=== PATIENT | male | born 1985 | race Two or more races ===

== ENCOUNTER 2020-09-11 12:08 | Outpatient (REF) | payer OTHER, SELFPAY | END 2020-09-11 12:09 | disposition home or self-care (01) | LOC: HO.LAB 12:08 | PROVIDERS: Visit Provider Internal Medicine | DX: Z20.828 Contact with and (suspected) exposure to other viral communicable diseases (principal) | CPT/HCPCS: 87635 ==

== ENCOUNTER 2020-10-21 07:22 | Outpatient (REF) | payer OTHER, SELFPAY | END 2020-10-21 07:23 | disposition home or self-care (01) | LOC: HO.LAB 07:22 | PROVIDERS: Visit Provider Internal Medicine | DX: Z20.828 Contact with and (suspected) exposure to other viral communicable diseases (principal) | CPT/HCPCS: C9803; U0003 ==

== ENCOUNTER 2020-11-06 08:57 | Outpatient (REF) | payer OTHER, SELFPAY | END 2020-11-06 08:58 | disposition home or self-care (01) | LOC: HO.LAB 08:57 | PROVIDERS: Visit Provider Internal Medicine | DX: Z20.828 Contact with and (suspected) exposure to other viral communicable diseases (principal) | CPT/HCPCS: C9803; U0003 ==

== ENCOUNTER 2021-01-01 07:38 | Outpatient (REF) | payer OTHER, SELFPAY | END 2021-01-01 07:39 | disposition home or self-care (01) | LOC: HO.LAB 07:38 | PROVIDERS: Visit Provider Internal Medicine | DX: Z20.822 Contact with and (suspected) exposure to COVID-19 (principal) | CPT/HCPCS: 36415; C9803; U0003; U0005 ==

== ENCOUNTER 2021-01-15 09:40 | Outpatient (REF) | payer OTHER, SELFPAY | END 2021-01-15 09:41 | disposition home or self-care (01) | LOC: HO.LAB 09:40 | PROVIDERS: Visit Provider Internal Medicine | DX: Z20.822 Contact with and (suspected) exposure to COVID-19 (principal) | CPT/HCPCS: 36415; C9803; U0003; U0005 ==